=== PATIENT | female | born 1950 | race Caucasian/White ===

== ENCOUNTER 2019-03-18 04:35 | Outpatient (CLI) | payer BC ==
[~2019-03-18 04:35] MED LIST: ATOR10TA87 PO; CHOL200026 PO; DABI150C PO; FLEC50TA10 PO; FURO40TA4 PO; IBUP-24 PO; LEVO75TA57 PO; LOP25T PO; LOPE-74 PO; POTA10TA19 PO; [UNRECOGNIZED DRUG - CODE] PO
== END 2019-03-18 23:59 | disposition home or self-care (01) ==
LOC: DIABETIC 04:35
PROVIDERS: ATTEND Specialist
DX: E11.9 Type 2 diabetes mellitus without complications (principal); J44.9 Chronic obstructive pulmonary disease, unspecified; I10 Essential (primary) hypertension; Z79.4 Long term (current) use of insulin
CPT/HCPCS: G0108

== ENCOUNTER 2019-05-19 00:15 | Outpatient (CLI) | payer BC | END 2019-05-19 23:59 | disposition home or self-care (01) | LOC: DIABETIC 00:15 | PROVIDERS: ATTEND Specialist | DX: E11.65 Type 2 diabetes mellitus with hyperglycemia (principal) | CPT/HCPCS: G0108 ==

== ENCOUNTER 2022-06-29 10:06 | Emergency (ER) | payer MEDICARE ==
[~2022-06-29] VITALS: Ht 167.6 cm; Wt 93.6 kg
[~2022-06-29 10:06] MED LIST changes: +POTA-192 PO; -POTA10TA19 PO
[2022-06-29 10:43] VITALS: BP 122/61
[2022-06-29] MEDS ORDERED: ALBU6.7H14 INH (10:48)
[2022-06-29] MEDS ORDERED: DEXA6TAB PO (10:48)
[2022-06-29] MEDS ORDERED: BUDE180A INH (10:48)
== END 2022-06-29 11:43 | disposition home or self-care (01) ==
LOC: ER 10:06
DX: U07.1 COVID-19 (principal); I48.11 Longstanding persistent atrial fibrillation
CPT/HCPCS: 71045; 99283